=== PATIENT | male | born 1950 | race Caucasian/White ===

== ENCOUNTER 2017-07-06 03:18 | Emergency (ER) | payer MEDICARE ==
[~2017-07-06] VITALS: Ht 177.8 cm; Wt 64.0 kg
[2017-07-06 03:43] VITALS: BP_SYST 139; PULSE 79; RESP 16; TEMP 98; O2SAT 94
--- NOTE | 2017-07-06 04:21 | RADRPT ---
EXAM DATE/TIME: 07/06/2017 04:06 [facility] COMPARISON: No previous studies available for comparison. INDICATIONS : Chest and back pain. MEDICAL HISTORY : Chronic obstructive pulmonary disease. SURGICAL HISTORY : None. ENCOUNTER: Initial ACUITY: 1 day PAIN SCORE: 10/10 LOCATION: Bilateral chest FINDINGS: AP and lateral views of the chest demonstrate the lungs to be hyperaerated without evidence of mass, infiltrate or effusion. The cardiomediastinal contours are unremarkable. Osseous structures are int act. CONCLUSION: Emphysema. Cristopher Au MD on July 06, 2017 at 4:18 Board Certified Radiologist. This report was verified electronically.
[2017-07-06] MEDS ORDERED: oxyCODONE/ACETAMINOPHEN 5 MG/325 MG TAB PO ONE ×2 (04:45→06:45)
--- NOTE | 2017-07-06 05:10 | RADRPT ---
EXAM DATE/TIME: 07/06/2017 04:46 [facility] COMPARISON: No previous studies available for comparison. INDICATIONS : Trauma; left side pain after fall. RADIATION DOSE: 5.44 CTDIvol (mGy) MEDICAL HISTORY : None SURGICAL HISTORY : None. ENCOUNTER: Initial ACUITY: 1 day PAIN SCALE: 10/10 LOCATION: Left chest TECHNIQUE: Volumetric scanning of the chest was performed. Using automated exposure control and adjustment of t he mA and/or kV according to patient size, radiation dose was kept as low as reasonably achievable to obtain optimal diagnostic quality images. DICOM format image data is available electronically for r eview and comparison. Follow-up recommendations for detected pulmonary nodules are based at a minimum on nodule size and pa tient risk factors according to Fleischner Society Guidelines. FINDINGS: LUNGS: There is no consolidation or pneumothorax. No concerning pulmonary nodule is visualized. Severe cent rilobular emphysema. There is some scarring in the lingula. PLEURAE: There is no pleural thickening or pleural effusion. MEDIASTINUM: The heart and great vessels demonstrate no acute abnormality. There is no mediastinal or hilar lymph adenopathy. AXILLAE: Within normal limits. No lymphadenopathy. MUSCULOSKELETAL: Nondisplaced right 11th rib fracture. MISCELLANEOUS: The visualized upper abdominal organs demonstrate no acute abnormality. CONCLUSION: Right 11th rib fracture. No pneumothorax. Emphysema. Cristopher Au MD on July 06, 2017 at 5:05 Board Certified Radiologist. This report was verified electronically.
[2017-07-06] MEDS ORDERED: PERC5TAB12 PO (06:51)
--- NOTE | 2017-07-06 06:51 | PD ---
HPI Chief Complaint: Fall Time Seen by Provider: 04:41 Travel History International Travel<30 days: No Contact w/Intl Traveler<30days: No Traveled to known affect area: No History of Present Illness HPI Patient is a 67-year-old male who comes in complaining of right-sided back pain after a fall 3 days ago. He says he slipped on his boat and hit his side. He denies any other injuries. He says that the pain is gotten gradually worse and it hurts to take a deep breath. He denies hitting his head or any loss of consciousness. He has taken aspirin without relief of his symptoms. Severity is moderate. PFSH Past Medical History Medical History: Denies Significant Hx Tetanus Vaccination: > 5 Years Influenza Vaccination: No Social History Alcohol Use: Yes Tobacco Use: Yes Substance Use: No Allergies-Medications (Allergen,Severity, Reaction): Coded Allergies: No Known Allergies (Unverified , 07/06/17) Review of Systems Except as stated in HPI: all other systems reviewed are Neg General / Constitutional: No: Fever, Chills HENT: No: Headaches, Lightheadedness Cardiovascular: No: Chest Pain or Discomfort Gastrointestinal: No: Nausea, Vomiting Musculoskeletal: Positive: Pain Skin: No Rash, No Change in Pigmentation Neurologic: No: Weakness, Dizziness Physical Exam Narrative GENERAL: Awake and alert, no acute distress. SKIN: Focused skin assessment warm/dry. No wounds or ecchymosis. HEAD: Atraumatic. Normocephalic. EYES: Pupils equal and round. No scleral icterus. Extraocular movements intact. ENT: Mucous membranes pink and moist. NECK: Trachea midline. No JVD. CARDIOVASCULAR: Regular rate and rhythm. No murmur appreciated. RESPIRATORY: No accessory muscle use. Clear to auscultation. Breath sounds equal bilaterally. GASTROINTESTINAL: Abdomen soft, non-tender, nondistended. MUSCULOSKELETAL: No obvious deformities. No clubbing. No cyanosis. No edema. Tender to palpation of right posterior lower ribs. No spinal tenderness. NEUROLOGICAL: Awake and alert. No obvious cranial nerve deficits. Motor grossly within normal limits. Normal speech. PSYCHIATRIC: Appropriate mood and affect; insight and judgment normal. Data Data Last Documented VS Vital Signs Date Time Temp Pulse Resp B/P (MAP) Pulse Ox O2 Delivery O2 Flow Rate FiO2 07/06/17 03:43 98.0 79 16 139/ 94 Orders Orders Chest, Ap & Lat (07/06/17 ) Oxycodone-Acetamin 5-325 Mg (Percocet (07/06/17 04:45) Ct Thorax/ Chest Wo Iv Contras (07/06/17 ) Oxycodone-Acetamin 5-325 Mg (Percocet (07/06/17 06:45) Resp Incentive Spirometry (07/06/17 ) MDM Medical Decision Making Medical Screen Exam Complete: Yes Emergency Medical Condition: Yes Differential Diagnosis Rib fracture versus pneumothorax versus contusion Narrative Course Patient is a 67-year-old male who comes in complaining of right-sided rib pain after a fall. Exam shows tenderness to palpation of the lower ribs. X-ray performed shows no acute abnormalities. CT of the chest shows 1/11 rib fracture , no pneumothorax. Patient given pain medicine. He will be discharged with a prescription for pain medicine and an incentive spirometer. Advised to use the incentive spirometer frequently to avoid pneumonia. Advised to follow-up with a primary care doctor. Advised to return to the ED as needed for any worsening symptoms. Last 24 hours Impressions Chest X-Ray 07/06/17 0000 Signed Impressions: Service Date/Time: Thursday, July 06, 2017 04:06 - CONCLUSION: Emphysema. Cristopher Au MD Chest CT 07/06/17 0000 Signed Impressions: Service Date/Time: Thursday, July 06, 2017 04:46 - CONCLUSION: Right 11th rib fracture. No pneumothorax. Emphysema. Cristopher Au MD Diagnosis Primary Impression: Rib fracture Qualified Codes: S22.31XA - Fracture of one rib, right side, initial encounter for closed fracture Patient Instructions: General Instructions, Rib Fracture (ED) Additional Instructions: He is the incentive spirometer frequently to avoid pneumonia. Take pain medicine as needed. Return to the ED as needed for any worsening symptoms. Scripts Oxycodone-Acetaminophen (Percocet) 5-325 mg Tab 1 TAB PO Q6H Y for PAIN, #14 TAB 0 Refills Prov: Anne Ocasio MD 07/06/17 Disposition: 01 DISCHARGE HOME Condition: Stable Anne Ocasio MD Jul 06, 2017 06:51
== END 2017-07-06 07:09 | disposition home or self-care (01) ==
LOC: NEPE 03:18
DX: S22.31XA Fracture of one rib, right side, initial encounter for closed fracture (principal); W01.0XXA Fall on same level from slipping, tripping and stumbling without subsequent striking against object, initial encounter; Y92.814 Boat as the place of occurrence of the external cause; J43.9 Emphysema, unspecified; Z72.0 Tobacco use
CPT/HCPCS: 71046; 71250; 94150